=== PATIENT | female | born 1990 | race Caucasian/White ===

== ENCOUNTER 2023-02-26 11:53 | Emergency (ER) | payer SELFPAY ==
[~2023-02-26] VITALS: Ht 165.1 cm; Wt 63.5 kg
[2023-02-26] MEDS ORDERED: AMOX TR-K CLV1 EAC2 PO (13:12)
== END 2023-02-26 13:56 | disposition home or self-care (01) ==
LOC: ER 11:59
DX: K02.9 Dental caries, unspecified (principal)
CPT/HCPCS: 99282